=== PATIENT | female | born 1960 | race Caucasian/White ===

== ENCOUNTER 2025-05-10 10:07 | Emergency (ER) | payer BC, MEDICARE ==
[~2025-05-10] VITALS: Ht 165.1 cm; Wt 47.6 kg
[2025-05-10 10:10] VITALS: BP 133/80; TEMP 99.3; O2SAT 98
== END 2025-05-10 10:40 | disposition home or self-care (01) ==
LOC: ER 10:12
DX: S10.86XA Insect bite of other specified part of neck, initial encounter (principal); F39 Unspecified mood [affective] disorder; M43.6 Torticollis; Z85.41 Personal history of malignant neoplasm of cervix uteri; W57.XXXA Bitten or stung by nonvenomous insect and other nonvenomous arthropods, initial encounter; Y93.89 Activity, other specified; Y92.89 Other specified places as the place of occurrence of the external cause; Y99.9 Unspecified external cause status